=== PATIENT | female | born 1935 | race Two or more races ===

== ENCOUNTER → 2016-05-22 | Outpatient (REF) | payer MEDICARE, OTHER ==
[~2016-05-22] MED LIST: /PANT40TA OR; ASPI81TA3 OR; CETI10TA OR; GLUC500T3 OR; MULTIVIT PO; NEUR100C OR; ROSU10TA OR; SING10TA31 OR; TRAM50TA2 OR; TYL325 PO; [UNRECOGNIZED DRUG - OTHER] PO; lisinopril/hctz PO
[2016-05-22 16:31] LABS: INR 2.03
== END ==
LOC: M SFHCLACO 10:24
PROVIDERS: ATTEND Physician Assistant
DX: Z51.81 Encounter for therapeutic drug level monitoring (principal); Z79.01 Long term (current) use of anticoagulants

== ENCOUNTER → 2016-05-29 | Outpatient (REF) | payer MEDICARE, OTHER ==
[2016-05-29 17:20] LABS: INR 1.9
== END ==
LOC: M SFHCLACO 15:57
PROVIDERS: ATTEND Physician Assistant
DX: Z51.81 Encounter for therapeutic drug level monitoring (principal); Z79.01 Long term (current) use of anticoagulants

== ENCOUNTER → 2016-06-12 | Outpatient (REF) | payer MEDICARE, OTHER ==
[2016-06-12 16:13] LABS: ALBUMIN 3.7 GM/DL (3.2-5.2); ALBUMIN/GLOBULIN RATIO 1.32 (1.00-1.93); ALKALINE PHOSPHATASE 72 U/L (45-117); ALT/SGPT 23 U/L (12-78); ANION GAP 9 MEQ/L (8-16); AST/SGOT 16 U/L (15-37); BILIRUBIN,TOTAL 0.3 MG/DL (0.2-1.0); BLOOD UREA NITROGEN 27 MG/DL (7-18); CARBON DIOXIDE LEVEL 24 MEQ/L (21-32); CHLORIDE LEVEL 109 MEQ/L (98-107); CHOLESTEROL LEVEL 189 MG/DL (<200); CREATININE FOR GFR 0.86 MG/DL (0.55-1.02); GLOMERULAR FILTRATION RATE > 60.0 (>39); GLUCOSE, FASTING 118 MG/DL (83-110); MAGNESIUM LEVEL 1.8 MG/DL (1.8-2.4); POTASSIUM SERUM 4.2 MEQ/L (3.5-5.1); SODIUM LEVEL 142 MEQ/L (136-145); TOTAL PROTEIN 6.5 GM/DL (6.4-8.2); TRIGLYCERIDES LEVEL 142 MG/DL (<150)
== END ==
LOC: M SFHCLACO 08:12
PROVIDERS: ATTEND Physician Assistant
DX: I10 Essential (primary) hypertension (principal); E78.2 Mixed hyperlipidemia; Z51.81 Encounter for therapeutic drug level monitoring; Z79.899 Other long term (current) drug therapy; M15.9 Polyosteoarthritis, unspecified

== ENCOUNTER → 2016-06-19 | Outpatient (REF) | payer MEDICARE, OTHER ==
[2016-06-19 15:45] LABS: INR 2.14
== END ==
LOC: M SFHCLACO 15:08
PROVIDERS: ATTEND Physician Assistant
DX: Z51.81 Encounter for therapeutic drug level monitoring (principal); Z79.01 Long term (current) use of anticoagulants; Z86.711 Personal history of pulmonary embolism

== ENCOUNTER → 2016-06-26 | Outpatient (REF) | payer MEDICARE, OTHER ==
[2016-06-26 15:26] LABS: INR 1.63
== END ==
LOC: M SFHCLACO 15:14
PROVIDERS: ATTEND Physician Assistant
DX: Z51.81 Encounter for therapeutic drug level monitoring (principal); Z79.01 Long term (current) use of anticoagulants

== ENCOUNTER → 2016-07-03 | Outpatient (REF) | payer MEDICARE, OTHER ==
[2016-07-03 15:39] LABS: INR 3.24
== END ==
LOC: M SFHCLACO 14:58
PROVIDERS: ATTEND Physician Assistant
DX: Z51.81 Encounter for therapeutic drug level monitoring (principal); Z79.01 Long term (current) use of anticoagulants; Z86.711 Personal history of pulmonary embolism

== ENCOUNTER → 2016-07-17 | Outpatient (REF) | payer MEDICARE, OTHER ==
[2016-07-17 15:14] LABS: INR 2.32
== END ==
LOC: M SFHCLACO 08:41
PROVIDERS: ATTEND Physician Assistant
DX: Z51.81 Encounter for therapeutic drug level monitoring (principal); Z79.01 Long term (current) use of anticoagulants

== ENCOUNTER → 2016-07-31 | Outpatient (REF) | payer MEDICARE, OTHER ==
[2016-07-31 15:24] LABS: INR 2.04
== END ==
LOC: M SFHCLACO 15:00
PROVIDERS: ATTEND Physician Assistant
DX: Z51.81 Encounter for therapeutic drug level monitoring (principal); Z79.01 Long term (current) use of anticoagulants; Z86.711 Personal history of pulmonary embolism

== ENCOUNTER → 2016-08-16 | Outpatient (REF) | payer MEDICARE, OTHER ==
[2016-08-16 15:45] LABS: INR 1.84
== END ==
LOC: M SFHCLACO 15:11
PROVIDERS: ATTEND Physician Assistant
DX: Z86.711 Personal history of pulmonary embolism (principal); Z79.01 Long term (current) use of anticoagulants

== ENCOUNTER → 2016-08-23 | Outpatient (REF) | payer MEDICARE, OTHER ==
[2016-08-23 14:57] LABS: INR 2.18
== END ==
LOC: M SFHCLACO 14:40
PROVIDERS: ATTEND Physician Assistant
DX: Z51.81 Encounter for therapeutic drug level monitoring (principal); Z79.01 Long term (current) use of anticoagulants

== ENCOUNTER → 2016-09-04 | Outpatient (REF) | payer MEDICARE, OTHER ==
[2016-09-04 15:32] LABS: INR 2.11
== END ==
LOC: M LABDRWLA 14:53
PROVIDERS: ATTEND Physician Assistant
DX: Z51.81 Encounter for therapeutic drug level monitoring (principal); Z79.01 Long term (current) use of anticoagulants; Z86.711 Personal history of pulmonary embolism

== ENCOUNTER → 2016-10-02 | Outpatient (REF) | payer MEDICARE, OTHER ==
[2016-10-02 16:32] LABS: INR 2.78
== END ==
LOC: M SFHCLACO 15:58
PROVIDERS: ATTEND Physician Assistant
DX: Z51.81 Encounter for therapeutic drug level monitoring (principal); Z79.01 Long term (current) use of anticoagulants; Z86.11 Personal history of tuberculosis

== ENCOUNTER → 2016-10-16 | Outpatient (REF) | payer MEDICARE, OTHER ==
[2016-10-16 15:16] LABS: INR 2.13
== END ==
LOC: M SFHCLACO 10:15
PROVIDERS: ATTEND Physician Assistant
DX: Z51.81 Encounter for therapeutic drug level monitoring (principal); Z79.01 Long term (current) use of anticoagulants; Z86.711 Personal history of pulmonary embolism

== ENCOUNTER → 2016-10-23 | Outpatient (REF) | payer MEDICARE, OTHER ==
[2016-10-23 14:49] LABS: INR 2.23
== END ==
LOC: M SFHCLACO 09:40
PROVIDERS: ATTEND Physician Assistant
DX: Z51.81 Encounter for therapeutic drug level monitoring (principal); Z79.01 Long term (current) use of anticoagulants; Z86.711 Personal history of pulmonary embolism

== ENCOUNTER → 2016-11-06 | Outpatient (REF) | payer MEDICARE, OTHER ==
[2016-11-06 15:38] LABS: INR 2.33
== END ==
LOC: M SFHCLACO 15:21
PROVIDERS: ATTEND Physician Assistant
DX: Z51.81 Encounter for therapeutic drug level monitoring (principal); Z79.01 Long term (current) use of anticoagulants; Z86.711 Personal history of pulmonary embolism; Z23 Encounter for immunization

== ENCOUNTER → 2016-12-04 | Outpatient (REF) | payer MEDICARE, OTHER ==
[2016-12-04 15:15] LABS: INR 1.93
== END ==
LOC: M SFHCLACO 14:53
PROVIDERS: ATTEND Physician Assistant
DX: Z51.81 Encounter for therapeutic drug level monitoring (principal); Z79.01 Long term (current) use of anticoagulants; Z86.711 Personal history of pulmonary embolism

== ENCOUNTER → 2016-12-18 | Outpatient (REF) | payer MEDICARE, OTHER ==
[2016-12-18 15:02] LABS: INR 2.36
== END ==
LOC: M SFHCLACO 14:36
PROVIDERS: ATTEND Physician Assistant
DX: Z51.81 Encounter for therapeutic drug level monitoring (principal); Z79.01 Long term (current) use of anticoagulants; Z86.711 Personal history of pulmonary embolism

== ENCOUNTER → 2017-01-08 | Outpatient (REF) | payer MEDICARE, OTHER ==
[2017-01-08 15:02] LABS: INR 2.83
== END ==
LOC: M SFHCLACO 14:31
PROVIDERS: ATTEND Physician Assistant
DX: Z51.81 Encounter for therapeutic drug level monitoring (principal); Z79.01 Long term (current) use of anticoagulants; Z86.711 Personal history of pulmonary embolism

== ENCOUNTER → 2017-01-22 | Outpatient (REF) | payer MEDICARE, OTHER ==
[2017-01-22 15:29] LABS: INR 2.64
== END ==
LOC: M SFHCLACO 14:38
PROVIDERS: ATTEND Physician Assistant
DX: Z51.81 Encounter for therapeutic drug level monitoring (principal); Z79.01 Long term (current) use of anticoagulants; Z86.711 Personal history of pulmonary embolism

== ENCOUNTER → 2017-05-21 | Outpatient (REF) | payer MEDICARE, OTHER ==
[2017-05-21 15:12] LABS: ALBUMIN 3.5 GM/DL (3.2-5.2); ALBUMIN/GLOBULIN RATIO 1.21 (1.00-1.93); ALKALINE PHOSPHATASE 68 U/L (45-117); ALT/SGPT 19 U/L (12-78); ANION GAP 4 MEQ/L (8-16); AST/SGOT 20 U/L (7-37); BILIRUBIN,TOTAL 0.3 MG/DL (0.2-1.0); BLOOD UREA NITROGEN 27 MG/DL (7-18); CALCIUM LEVEL 9.8 MG/DL (8.8-10.2); CARBON DIOXIDE LEVEL 28 MEQ/L (21-32); CHLORIDE LEVEL 109 MEQ/L (98-107); CHOLESTEROL LEVEL 179 MG/DL (<200); CHOLESTEROL RISK RATIO 2.557 (<5); CREATININE FOR GFR 0.83 MG/DL (0.55-1.30); GLOMERULAR FILTRATION RATE > 60.0 (>32); GLUCOSE, FASTING 104 MG/DL (70-100); HDL CHOLESTEROL 70 MG/DL (>40); LDL CHOLESTEROL 80.6 MG/DL (<100); NON-HDL-C 109 MG/DL; POTASSIUM SERUM 4.2 MEQ/L (3.5-5.1); SODIUM LEVEL 141 MEQ/L (136-145); TOTAL PROTEIN 6.4 GM/DL (6.4-8.2); TRIGLYCERIDES LEVEL 142 MG/DL (<150)
[2017-05-21 15:15] LABS: ESTIMATED AVERAGE GLUCOSE 140 MG/DL (60-110); HEMOGLOBIN A1c 6.5 %
== END ==
LOC: M SFHCLACO 09:08
DX: E78.2 Mixed hyperlipidemia (principal); I10 Essential (primary) hypertension; R73.9 Hyperglycemia, unspecified
CPT/HCPCS: 80053

== ENCOUNTER 2017-09-02 09:18 | Inpatient (IN) | payer MEDICARE, OTHER ==
[2017-09-02 10:22] LABS: BEDSIDE GLUCOSE 123 MG/DL (83-110)
[2017-09-02] MEDS: NS 1,000 ML IV ×3 (11:00→21:46)
[2017-09-02] MEDS: ONDANSETRON 4MG/2ML VIAL (J2405) IV (11:00)
[2017-09-02 11:39] LABS: BASO # 0.1 10^3/uL (0.0-0.2); BASO % 0.8 % (0.0-1.0); EOS # 0.2 10^3/uL (0.0-0.50); EOS % 1.8 % (0.0-3.0); HEMATOCRIT 37.3 % (36.0-47.0); IMMATURE GRANULOCYTE % 0.3 % (0-3.0); LYMPH # 2.2 10^3/uL (1.5-4.5); LYMPH % 24.7 % (24.0-44.0); MEAN CORPUSCULAR HEMOGLOBIN 29.6 pg (27.0-33.0); MEAN CORPUSCULAR HGB CONC 32.2 g/dl (32.0-36.5); MEAN CORPUSCULAR VOLUME 92.1 fl (80.0-96.0); MONO # 0.6 10^3/uL (0.0-0.8); MONO % 7.2 % (0.0-5.0); NEUTROPHILS # 5.8 10^3/uL (1.8-7.7); NEUTROPHILS % 65.2 % (36.0-66.0); PLATELET COUNT, AUTOMATED 343 10^3/uL (150-450); RED BLOOD COUNT 4.05 10^6/uL (4.00-5.40); RED CELL DISTRIBUTION WIDTH 13.3 % (11.5-14.5); WHITE BLOOD COUNT 8.9 10^3/uL (4.0-10.0)
[2017-09-02 11:46] LABS: KETONE, URINE AUTO RFX NEGATIVE (NEGATIVE); LEUKOCYTE ESTERASE UR AUTO RFX TRACE (NEGATIVE); NITRITE, URINE AUTO RFX NEGATIVE (NEGATIVE); RBC, URINE AUTO RFX 0 /HPF (0-3); SPECIFIC GRAVITY UR AUTO RFX 1.019 (1.002-1.035); SQUAM EPITHELIAL CELL UR AURFX 0 /HPF (0-6); WBC, URINE AUTO RFX 2 /HPF (0-3)
[2017-09-02 11:50] LABS: INR 1.74; PROTHROMBIN TIME 20.6 SECONDS (12.1-14.4)
[2017-09-02 11:51] LABS: PARTIAL THROMBOPLASTIN TIME 32.8 SECONDS (25.4-37.6)
[2017-09-02 12:06] LABS: ALBUMIN/GLOBULIN RATIO 1.29 (1.00-1.93); ALKALINE PHOSPHATASE 63 U/L (45-117); ALT/SGPT 25 U/L (12-78); ANION GAP 10 MEQ/L (8-16); AST/SGOT 25 U/L (7-37); BILIRUBIN,DIRECT 0.1 MG/DL (0.0-0.2); BILIRUBIN,TOTAL 0.6 MG/DL (0.2-1.0); BLOOD UREA NITROGEN 34 MG/DL (7-18); CALCIUM LEVEL 12.8 MG/DL (8.8-10.2); CARBON DIOXIDE LEVEL 27 MEQ/L (21-32); CHLORIDE LEVEL 105 MEQ/L (98-107); CPK CREATINE PHOSPHOKINASE 99 U/L (26-192); CREATININE FOR GFR 1.17 MG/DL (0.55-1.30); GLOMERULAR FILTRATION RATE 47.4 (>32); GLUCOSE, FASTING 112 MG/DL (70-100); LIPASE 186 U/L (73-393); MB/CK RELATIVE INDEX 3.03 (< OR =4); POTASSIUM SERUM 3.5 MEQ/L (3.5-5.1); SODIUM LEVEL 142 MEQ/L (136-145); TOTAL PROTEIN 7.1 GM/DL (6.4-8.2); TROPONIN I < 0.02 NG/ML (< 0.10)
[2017-09-02 12:10] LABS: LACTIC ACID SEPSIS PROTOCOL 1.2 MMOL/L (0.4-2.0)
[2017-09-02] MEDS ORDERED: ISOVUE-370 76% 100ML VIAL (Q9967) As Ordered (12:13)
[2017-09-02 12:41] LABS: FREE T4 1.01 NG/DL (0.76-1.46)
[2017-09-02 13:15] LABS: PTH INTACT 32.2 PG/ML (18.5-88.0)
[2017-09-02] MEDS ORDERED: HEPARIN SOD (PORCINE) 5000 UNITS/ML VIAL SC (14:00)
[2017-09-02] MEDS ORDERED: ONDANSETRON 4MG/2ML VIAL (J2405) IV (14:15)
[2017-09-02] MEDS ORDERED: METOCLOPRAMIDE INJ 10MG/2ML VIAL (J2765) IV (14:15)
[2017-09-02] MEDS ORDERED: ACETAMINOPHEN TAB 650MG DOSE (2X325MG) PO (14:15)
[2017-09-02 14:41] LABS: TOTAL 25(OH) VITAMIN D 60.8 NG/ML (30.0-100.0)
[2017-09-02 16:36] LABS: IONIZED CALCIUM 5.8 MG/DL (4.5-5.3)
[2017-09-02] MEDS ORDERED: LOPERAMIDE 2 MG CAP PO (17:00)
[2017-09-02] MEDS: MULTIVITAMINS/MINERALS THERAP 1 TAB PO (18:54)
[2017-09-02] MEDS: GABAPENTIN 100 MG CAP PO ×2 (18:54→20:35)
[2017-09-02] MEDS: LISINOPRIL 10 MG TAB PO (18:54)
[2017-09-02] MEDS: FOLIC ACID 1 MG TAB PO (18:54)
[2017-09-02] MEDS: DULoxetine 30 MG CAP (CYMBALTA) PO ×2 (18:54→20:36)
[2017-09-02] MEDS: WARFARIN SOD 5 MG TAB PO (18:55)
[2017-09-02] MEDS: ROSUVASTATIN 10 MG TAB (CRESTOR) PO (20:35)
[2017-09-02] MEDS: ASPIRIN 81 MG ENTERIC TAB PO (20:35)
[2017-09-02] MEDS: DICYCLOMINE 10 MG CAP PO (20:35)
[2017-09-02] MEDS: PANTOPRAZOLE 40MG TAB (PROTONIX) PO (20:36)
[2017-09-02] MEDS: busPIRone 10 MG TAB PO (20:36)
[2017-09-02] MEDS: diphenhydrAMINE 25 MG CAP PO ×2 (20:37→21:45)
[2017-09-03 05:36] LABS: HEMATOCRIT 31.7 % (36.0-47.0); MEAN CORPUSCULAR HEMOGLOBIN 29.6 pg (27.0-33.0); MEAN CORPUSCULAR HGB CONC 31.2 g/dl (32.0-36.5); MEAN CORPUSCULAR VOLUME 94.6 fl (80.0-96.0); PLATELET COUNT, AUTOMATED 247 10^3/uL (150-450); RED BLOOD COUNT 3.35 10^6/uL (4.00-5.40); RED CELL DISTRIBUTION WIDTH 13.3 % (11.5-14.5); WHITE BLOOD COUNT 7.9 10^3/uL (4.0-10.0)
[2017-09-03 05:36] LABS: IONIZED CALCIUM 5.2 MG/DL (4.5-5.3)
[2017-09-03 05:41] LABS: HEMOGLOBIN 9.9 g/dl (12.0-15.5)
[2017-09-03] MEDS: NS 1,000 ML IV ×2 (05:42→10:14)
[2017-09-03 05:51] LABS: PROTHROMBIN TIME 20.3 SECONDS (12.1-14.4)
[2017-09-03 06:00] LABS: ALBUMIN 2.8 GM/DL (3.2-5.2); ALBUMIN/GLOBULIN RATIO 1.17 (1.00-1.93); ALKALINE PHOSPHATASE 44 U/L (45-117); ALT/SGPT 22 U/L (12-78); ANION GAP 7 MEQ/L (8-16); AST/SGOT 21 U/L (7-37); BILIRUBIN,TOTAL 0.2 MG/DL (0.2-1.0); BLOOD UREA NITROGEN 28 MG/DL (7-18); CALCIUM LEVEL 9.1 MG/DL (8.8-10.2); CARBON DIOXIDE LEVEL 25 MEQ/L (21-32); CHLORIDE LEVEL 112 MEQ/L (98-107); CREATININE FOR GFR 0.94 MG/DL (0.55-1.30); GLOMERULAR FILTRATION RATE > 60.0 (>32); GLUCOSE, FASTING 98 MG/DL (70-100); POTASSIUM SERUM 3.3 MEQ/L (3.5-5.1); SODIUM LEVEL 144 MEQ/L (136-145); TOTAL PROTEIN 5.2 GM/DL (6.4-8.2)
[2017-09-03] MEDS: PREVNAR 13 VACCINE SYRINGE (CPT CODE:90670) IM (09:00)
[2017-09-03] MEDS: PANTOPRAZOLE 40MG TAB (PROTONIX) PO ×2 (10:13→20:32)
[2017-09-03] MEDS: GABAPENTIN 100 MG CAP PO ×3 (10:13→20:32)
[2017-09-03] MEDS: FOLIC ACID 1 MG TAB PO (10:14)
[2017-09-03] MEDS: DULoxetine 30 MG CAP (CYMBALTA) PO ×3 (10:14→20:31)
[2017-09-03] MEDS: MULTIVITAMINS/MINERALS THERAP 1 TAB PO (10:14)
[2017-09-03] MEDS: LISINOPRIL 10 MG TAB PO (10:14)
[2017-09-03] MEDS: busPIRone 10 MG TAB PO ×2 (10:15→20:32)
[2017-09-03] MEDS: DICYCLOMINE 10 MG CAP PO ×2 (10:15→20:32)
[2017-09-03] MEDS: POTASSIUM CHLORIDE 10 MEQ SR TABLET PO (10:15)
[2017-09-03] MEDS: WARFARIN SOD 5 MG TAB PO (16:41)
[2017-09-03] MEDS: diphenhydrAMINE 25 MG CAP PO (20:31)
[2017-09-03] MEDS: ROSUVASTATIN 10 MG TAB (CRESTOR) PO (20:32)
[2017-09-03] MEDS: ASPIRIN 81 MG ENTERIC TAB PO (20:32)
[2017-09-04 07:18] LABS: HEMATOCRIT 30.5 % (36.0-47.0); HEMOGLOBIN 9.6 g/dl (12.0-15.5); MEAN CORPUSCULAR HEMOGLOBIN 29.4 pg (27.0-33.0); MEAN CORPUSCULAR HGB CONC 31.5 g/dl (32.0-36.5); MEAN CORPUSCULAR VOLUME 93.3 fl (80.0-96.0); PLATELET COUNT, AUTOMATED 262 10^3/uL (150-450); RED BLOOD COUNT 3.27 10^6/uL (4.00-5.40); RED CELL DISTRIBUTION WIDTH 13.3 % (11.5-14.5); WHITE BLOOD COUNT 7.1 10^3/uL (4.0-10.0)
[2017-09-04 07:18] LABS: IONIZED CALCIUM 4.9 MG/DL (4.5-5.3)
[2017-09-04 07:44] LABS: ALBUMIN 2.8 GM/DL (3.2-5.2); ALBUMIN/GLOBULIN RATIO 0.93 (1.00-1.93); ALKALINE PHOSPHATASE 50 U/L (45-117); ALT/SGPT 21 U/L (12-78); ANION GAP 7 MEQ/L (8-16); AST/SGOT 21 U/L (7-37); BILIRUBIN,TOTAL 0.1 MG/DL (0.2-1.0); BLOOD UREA NITROGEN 21 MG/DL (7-18); CALCIUM LEVEL 8.6 MG/DL (8.8-10.2); CARBON DIOXIDE LEVEL 24 MEQ/L (21-32); CHLORIDE LEVEL 115 MEQ/L (98-107); GLOMERULAR FILTRATION RATE > 60.0 (>32); GLUCOSE, FASTING 100 MG/DL (70-100); POTASSIUM SERUM 3.6 MEQ/L (3.5-5.1); SODIUM LEVEL 146 MEQ/L (136-145); TOTAL PROTEIN 5.8 GM/DL (6.4-8.2)
[2017-09-04 07:46] LABS: INR 1.94; PROTHROMBIN TIME 22.5 SECONDS (12.1-14.4)
[2017-09-04] MEDS ORDERED: NITROFURANTOIN (MACROBID) 100 MG CAP PO (09:00)
[2017-09-04] MEDS: PANTOPRAZOLE 40MG TAB (PROTONIX) PO (09:07)
[2017-09-04] MEDS: DULoxetine 30 MG CAP (CYMBALTA) PO (09:07)
[2017-09-04] MEDS: CIPROFLOXACIN 250 MG TAB PO (09:07)
[2017-09-04] MEDS: DICYCLOMINE 10 MG CAP PO (09:08)
[2017-09-04] MEDS: LISINOPRIL 10 MG TAB PO (09:08)
[2017-09-04] MEDS: GABAPENTIN 100 MG CAP PO (09:08)
[2017-09-04] MEDS: MULTIVITAMINS/MINERALS THERAP 1 TAB PO (09:08)
[2017-09-04] MEDS: FOLIC ACID 1 MG TAB PO (09:08)
[2017-09-04] MEDS: busPIRone 10 MG TAB PO (09:08)
== END 2017-09-04 14:16 | disposition home or self-care (01) | DRG 641 ==
LOC: M MS4PR 09-03 17:00 → M ED 09:18 → M ED INP 14:14 → M PCU 18:44
PROVIDERS: Hospitalist
DX: E83.52 Hypercalcemia (principal); N39.0 Urinary tract infection, site not specified; R11.2 Nausea with vomiting, unspecified; Z86.711 Personal history of pulmonary embolism; E78.5 Hyperlipidemia, unspecified; J45.909 Unspecified asthma, uncomplicated; M19.90 Unspecified osteoarthritis, unspecified site; B96.29 Other Escherichia coli [E. coli] as the cause of diseases classified elsewhere; K44.9 Diaphragmatic hernia without obstruction or gangrene; Z79.899 Other long term (current) drug therapy; Z79.82 Long term (current) use of aspirin; Z87.442 Personal history of urinary calculi; F41.9 Anxiety disorder, unspecified; I10 Essential (primary) hypertension; Z79.01 Long term (current) use of anticoagulants; Z96.641 Presence of right artificial hip joint

== ENCOUNTER 2017-10-01 07:49 | Emergency (ER) | payer MEDICARE, OTHER ==
[2017-10-01] MEDS: ALPRAZolam 0.25 MG TAB PO (08:36)
[2017-10-01 08:38] LABS: BASO % 0.3 % (0.0-1.0); EOS # 0.2 10^3/uL (0.0-0.50); EOS % 2.2 % (0.0-3.0); HEMOGLOBIN 10.5 g/dl (12.0-15.5); IMMATURE GRANULOCYTE % 0.3 % (0-3.0); LYMPH # 1.7 10^3/uL (1.5-4.5); LYMPH % 18.6 % (24.0-44.0); MEAN CORPUSCULAR HEMOGLOBIN 28.3 pg (27.0-33.0); MEAN CORPUSCULAR HGB CONC 31.8 g/dl (32.0-36.5); MEAN CORPUSCULAR VOLUME 88.9 fl (80.0-96.0); MONO # 0.8 10^3/uL (0.0-0.8); MONO % 8.9 % (0.0-5.0); NEUTROPHILS # 6.4 10^3/uL (1.8-7.7); NEUTROPHILS % 69.7 % (36.0-66.0); PLATELET COUNT, AUTOMATED 384 10^3/uL (150-450); RED BLOOD COUNT 3.71 10^6/uL (4.00-5.40); RED CELL DISTRIBUTION WIDTH 13.3 % (11.5-14.5); WHITE BLOOD COUNT 9.2 10^3/uL (4.0-10.0)
[2017-10-01 08:48] LABS: INR 3.95; PROTHROMBIN TIME 39.6 SECONDS (12.1-14.4)
[2017-10-01 09:32] LABS: ANION GAP 5 MEQ/L (8-16); BLOOD UREA NITROGEN 33 MG/DL (7-18); CALCIUM LEVEL 11.2 MG/DL (8.8-10.2); CARBON DIOXIDE LEVEL 28 MEQ/L (21-32); CHLORIDE LEVEL 107 MEQ/L (98-107); CREATININE FOR GFR 1.16 MG/DL (0.55-1.30); FREE T4 0.97 NG/DL (0.76-1.46); GLOMERULAR FILTRATION RATE 47.9 (>32); GLUCOSE, FASTING 114 MG/DL (70-100); MAGNESIUM LEVEL 1.5 MG/DL (1.8-2.4); POTASSIUM SERUM 3.9 MEQ/L (3.5-5.1); SODIUM LEVEL 140 MEQ/L (136-145)
[2017-10-01] MEDS: MAG SULF 1GM/100ML (MAG RUN) 1 GM in APPROPRIATE DILUENT 1 EA IV (10:05)
== END 2017-10-01 12:35 | disposition home or self-care (01) ==
LOC: M ED 07:49
DX: F41.9 Anxiety disorder, unspecified (principal); I10 Essential (primary) hypertension; E78.5 Hyperlipidemia, unspecified; Z86.711 Personal history of pulmonary embolism; Z86.73 Personal history of transient ischemic attack (TIA), and cerebral infarction without residual deficits; Z88.8 Allergy status to other drugs, medicaments and biological substances; Z79.899 Other long term (current) drug therapy; Z79.82 Long term (current) use of aspirin
CPT/HCPCS: J3475

== ENCOUNTER 2017-10-02 11:12 | Emergency (ER) | payer MEDICARE, OTHER | END 2017-10-02 12:37 | disposition left against medical advice (07) | LOC: M ED 11:12 | DX: Z53.29 Procedure and treatment not carried out because of patient's decision for other reasons (principal) ==